=== PATIENT | female | born 1945 | race Caucasian/White ===

== ENCOUNTER → 2023-11-26 | Outpatient (CLI) | payer MEDICARE, OTHER ==
[~2023-11-26] MED LIST: Iohexol 300 - 100 ML VIAL IV ONE
== END ==
LOC: RAD 08:45
DX: N28.1 Cyst of kidney, acquired (principal); K83.8 Other specified diseases of biliary tract; Z90.49 Acquired absence of other specified parts of digestive tract
CPT/HCPCS: Q9967